=== PATIENT | male | born 1960 | race Caucasian/White ===

== ENCOUNTER 2016-08-13 10:01 | Emergency (ER) | payer BC ==
[2016-08-13 10:40] LABS: BASOPHILS 0.3 %; BASOPHILS ABSOLUTE 0.02 10/3/uL (0.0-0.16); EOSINOPHILS 2.2 %; EOSINOPHILS ABSOLUTE 0.15 10/3/uL (0.0-0.53); ER CBC TAT 0 Hrs 07 Mins; HEMATOCRIT 38.3 % (40.0-51.0); HEMOGLOBIN 12.4 g/dL (13.6-17.8); IMMATURE GRANULOCYTES 0.1 %; IMMATURE GRANULOCYTES ABSOLUTE 0.01 10/3/uL (0.0-0.11); LYMPHOCYTES 20.5 %; LYMPHOCYTES ABSOLUTE 1.43 10/3/uL (0.67-4.30); MEAN CORPUS HGB CONC 32.4 g/dL (32.0-36.0); MEAN CORPUSCULAR HEMOGLOB 29.4 pg (26.0-34.0); MEAN CORPUSCULAR VOLUME 90.8 fL (80-100); MEAN PLATELET VOLUME 9.7 fL (9.2-13.0); MONOCYTES 11.9 %; MONOCYTES ABSOLUTE 0.83 10/3/uL (0.21-1.20); NEUTROPHILS ABSOLUTE 4.52 10/3/uL (2.02-8.40); PLATELET COUNT 221 10/3/uL (150-400); RBC DISTRIBUTION WIDTH 14.8 % (12.0-16.0); RED CELL COUNT 4.22 10/6/uL (4.7-6.1)
[2016-08-13 10:41] LABS: MANUAL DIFF NO %
[2016-08-13 10:46] LABS: INTERNATIONAL NORMAL RATI 1.2 UNITS (-)
[2016-08-13 11:03] LABS: ALBUMIN 3.4 G/DL (3.5-5.0); ALKALINE PHOSPHATASE 102 U/L (45-117); BUN (BLOOD UREA NITROGEN) 17 MG/DL (6-23); CALCIUM, SERUM 8.5 MG/DL (8.5-10.4); CHLORIDE, SERUM 108 MMOL/L (96-112); CO2 (CARBON DIOXIDE) 29 MMOL/L (24-34); CREATININE 1.32 MG/DL (0.70-1.30); GFR AFRICAN AMERICAN 70 ML/MIN (>=60); GFR NON AFRICAN AMERICAN 61 ML/MIN (>=60); GLOBULIN 3.3 G/DL (2.5-4.1); GLUCOSE, SERUM 109 MG/DL (60-99); POTASSIUM, SERUM 4.3 MMOL/L (3.5-5.3); SGOT(AST) 25 U/L (5-40); SGPT(ALT) 54 U/L (5-65); SODIUM, SERUM 143 MMOL/L (135-148); TOTAL PROTEIN 6.7 G/DL (6.0-8.5); TROPONIN I 0.03 NG/ML (<0.05)
[2016-08-27] MEDS ORDERED: COREG12 PO (15:02)
[2016-08-27] MEDS ORDERED: PRIN20 PO (15:02)
[2016-08-27] MEDS ORDERED: KLOR-CON 1010 MEQ PO (15:03)
[2016-08-27] MEDS ORDERED: L40 PO (15:03)
[2016-08-27] MEDS ORDERED: ALLEGRA180 PO (15:04)
[2016-08-27] MEDS ORDERED: ASABAYER PO (15:04)
[2016-08-27] MEDS ORDERED: CENTRUM PO (15:05)
== END 2016-08-13 12:06 | disposition home or self-care (01) ==
LOC: ER 10:01
PROVIDERS: Emergency Medicine
DX: I11.0 Hypertensive heart disease with heart failure (principal); I50.9 Heart failure, unspecified; Z86.73 Personal history of transient ischemic attack (TIA), and cerebral infarction without residual deficits
CPT/HCPCS: 71010; 80053; 83880; 84484; 85025; 85610; 96374; 99285; A9270-GY; J1940

== ENCOUNTER 2016-09-01 10:49 | Day surgery (SDC) | payer BC ==
[2016-08-27 17:39] LABS: HEMATOCRIT 41.5 % (40.0-51.0); HEMOGLOBIN 13.6 g/dL (13.6-17.8)
[2016-08-27 17:50] LABS: BUN (BLOOD UREA NITROGEN) 20 MG/DL (6-23); CALCIUM, SERUM 9.2 MG/DL (8.5-10.4); CHLORIDE, SERUM 104 MMOL/L (96-112); CO2 (CARBON DIOXIDE) 33 MMOL/L (24-34); GFR AFRICAN AMERICAN 79 ML/MIN (>=60); GFR NON AFRICAN AMERICAN 68 ML/MIN (>=60); GLUCOSE, SERUM 89 MG/DL (60-99); POTASSIUM, SERUM 3.9 MMOL/L (3.5-5.3); SODIUM, SERUM 143 MMOL/L (135-148)
--- NOTE | ~2016-09-01 | OP ---
Record Of Operation [facility] [address] [place]. [address] NAME: ESTEPHANIE BOYER : 62 STATUS : [facility]#: [id number] AGE: 55 ADM/REG DATE : 09/01/16 MR#: [id number] REPORT SERV DATE: 09/02/16 DICTATED BY: DIEGO BLANCHARD DATE: 09/01/16 REPORT STATUS : Draft TRANSCRIBED BY: MODL DATE: 09/01/16 DATE OF PROCEDURE: 09/01/2016 PREOPERATIVE DIAGNOSES: 1. Incarcerated supraumbilical hernia. 2. Recent nicotine cessation. 3. Hypertension. 4. History of cerebrovascular accident. 5. Obesity with BMI of 33.9. POSTOPERATIVE DIAGNOSES: 1. Multiple incarcerated ventral hernias (4). 2. Incarcerated supraumbilical hernia. 3. Recent nicotine cessation. 4. Hypertension. 5. History of cerebrovascular accident. 6. Obesity with BMI of 33.9. PROCEDURE: Robotic preperitoneal incarcerated ventral hernia repair x4 with mesh. ANESTHESIA: General. SURGEON: Diego Blanchard M.D. POCKET OPERATOR: Stefany. COMPLICATIONS: None. DRAINS: None. ESTIMATED BLOOD LOSS: 30 mL. FINDINGS: The patient was noted to have one large supraumbilical hernia with large amount of incarcerated preperitoneal fat. Below this and at the umbilicus, there were three additional hernias, whereof two 1 cm in size and one 0.5 cm in size off the midline in to the left. The entire mid abdomen fascia was attenuated and was reconstructed. OPERATIVE TECHNIQUE: The patient was brought to the operating room and placed on the table in supine position. He had preoperative IV antibiotics. He had sequential hose in place. He voided prior to procedure. He underwent general endotracheal anesthesia and was prepped and draped in sterile fashion. A time-out was completed. Local anesthesia was instilled to the left subcostal skin just below the costal margin in the midclavicular line. The Veress needle was inserted and a water drop test safely performed. 15 mm of pneumoperitoneum was obtained. An 8 mm robotic trocar was placed and the laparoscope was inserted. There was no evidence of Veress or trocar injury. The patient then had a left lower quadrant midclavicular line 8 mm robotic trocar placed under direct visualization. Two 12 mm trocars Record Of Operation [place] [id number] [facility] [place]. [address] NAME: ESTEPHANIE BOYER : 62 STATUS : [facility] PAT#: [id number] AGE: 55 ADM/REG DATE : 09/01/16 MR#: [id number] REPORT SERV DATE: 09/02/16 DICTATED BY: DIEGO BLANCHARD DATE: 09/01/16 REPORT STATUS : Draft TRANSCRIBED BY: BONILLA DATE: 09/01/16 were then placed in the lateral mid and left upper abdomen under direct visualization. The patient was then rolled with his right side up, and the patient's cart was brought to the bedside and the trocars were docked. The procedure began when the pneumoperitoneum was divided in the left upper quadrant and linear longitudinal fashion to the left lower quadrant. A posterior flap was then created circumferentially on the right midclavicular line. This dissection continued superiorly to the level of the hernia. The hernia was encircled, it was very large and was carefully reduced out of the supraumbilical fascia. The dissection then continued inferiorly where the patient was noted to have three smaller incarcerated ventral hernias with incarcerated preperitoneal fat. They were all reduced and the contents excised. The posterior peritoneal flap of peritoneum was then completely mobilized from the right clavicular line into the pelvis. The defects were then closed primarily with a running 2-0 V-Loc suture and one continuous running suture that was run back upon itself without tension with the pneumoperitoneum reduced to 6 mm. The decision was then made to use a Ventralight ST mesh, it was in an ellipse that was 4 inches x 6 inches. It was positioned with the suture in the middle and placed into the abdomen and brought out the middle of the fascial closure and abdominal wall weakness and held with a hemostat. The mesh was then secured to the anterior abdominal wall circumferentially with a running 2-0 V-Loc suture. Two sutures were used to complete this reapproximation of the mesh to the posterior perineum. The entire defective space was reapproximated with excellent overlay of the mesh. The peritoneum was then reapproximated over the mesh with a 3-0 Vicryl suture to prevent any exposure of the mesh or bowel. There was no evidence of any other abnormalities after closure. The patient's cart undocked and removed. A laparoscope was then used to close the 12 mm defect with a suture passer, and the instruments and trocars were then removed as the pneumoperitoneum was aspirated. The skin edges were then reapproximated using interrupted subcuticular Monocryl sutures. Dermabond was applied. He was extubated and taken to the recovery room in stable condition. All sponge and needle counts reported correct. DH/MODL Diego Blanchard M.D. / [id number] CC: Diego Blanchard M.D. [facility]
[~2016-09-01 10:49] MED LIST: ALLEGRA180 PO; ASABAYER PO; CENTRUM PO; COREG12 PO; KLOR-CON 1010 MEQ PO; L40 PO; PRIN20 PO
== END 2016-09-01 19:59 | disposition home or self-care (01) ==
LOC: SDC 10:49
PROVIDERS: Surgery
PROC: 0WUF0JZ Supplement Abdominal Wall with Synthetic Substitute, Open Approach (ICD-10-PCS; principal; 2016-09-01 13:00)
DX: K43.6 Other and unspecified ventral hernia with obstruction, without gangrene (principal); I10 Essential (primary) hypertension; E66.9 Obesity, unspecified; Z86.73 Personal history of transient ischemic attack (TIA), and cerebral infarction without residual deficits; Z68.33 Body mass index [BMI] 33.0-33.9, adult; Z87.891 Personal history of nicotine dependence; Z98.890 Other specified postprocedural states
CPT/HCPCS: 80048; 85014; 85018; 87641; 93005; A9270-GY; C1781; J0690; J2250; J2405; J2710; J3010